=== PATIENT | female | born 1955 | race Hispanic/Latino ===

== ENCOUNTER 2017-07-20 07:15 | Day surgery (SDC) | payer OTHER ==
[2017-07-20 07:49] LABS: Basophils % (Auto) 0.6 % (0.0-1.8); Eosinophils # (Auto) 0.4 K/mm3 (0.0-0.4); Eosinophils % (Auto) 7.6 % (0.0-4.3); Hematocrit 39.7 % (30.3-42.9); Hemoglobin 13.4 gm/dl (10.1-14.3); Lymphocytes # (Auto) 1.5 K/mm3 (1.2-5.4); Lymphocytes % (Auto) 28.4 % (13.4-35.0); Mean Corpuscular HGB Conc 34 % (30-34); Mean Corpuscular Hemoglobin 32 pg (28-32); Mean Corpuscular Volume 95 fl (79-97); Monocytes # (Auto) 0.5 K/mm3 (0.0-0.8); Monocytes % (Auto) 8.5 % (0.0-7.3); Platelet Count 218 K/mm3 (140-440); Red Blood Count 4.18 M/mm3 (3.65-5.03); Red Cell Distribution Width 12.8 % (13.2-15.2)
[2017-07-20] MEDS ORDERED: ECOTRIN PO NR (08:00)
[2017-07-20] MEDS ORDERED: NACL 0.9% 500 ML 500 ML IV SCH (08:00)
[2017-07-20 08:01] LABS: INR 0.89 (0.87-1.13)
[2017-07-20 08:03] LABS: BUN/Creatinine Ratio 21; Blood Urea Nitrogen 15 mg/dL (7-17); Calcium 9.3 mg/dL (8.4-10.2); Hemolysis Index 3
[2017-07-20] MEDS ORDERED: HEPARIN/NS 5000 UNIT/500ML(CATH LAB) 1,000 ML IR ONE (08:25)
[2017-07-20] MEDS ORDERED: CALAN ONE (08:25)
[2017-07-20] MEDS ORDERED: HEPARIN 10,000 UNITS/10 ML ONE (08:25)
[2017-07-20] MEDS ORDERED: XYLOCAINE 2% INFILTRATI ONE (08:26)
[2017-07-20] MEDS ORDERED: SUBLIMAZE ONE (08:26)
[2017-07-20] MEDS ORDERED: VERSED ONE (08:26)
[2017-07-20] MEDS ORDERED: NITROGLYCERIN SYRINGE 3 ML ONE (08:26)
--- NOTE | 2017-07-20 10:09 | Cardiac Catherization Report ---
REFERRING PHYSICIAN: Edgar Garcia MD. INDICATION FOR PROCEDURE: The patient is a very pleasant 61-year-old female with history of conjunctive pericarditis, status post pericardiectomy, abnormal stress test, who presents here for left heart catheterization. Risks, benefits and alternatives explained at length prior to obtaining informed consent. PROCEDURE IN DETAIL: The patient was brought to the catheterization lab in postoperative state, prepped and draped in sterile fashion. Zhang's test in right hand was normal. A 2 mL of 2% lidocaine used to anesthetize the right wrist. A standard 6-[place]ian hydrophilic sheath used to cannulate the right radial artery via modified Seldinger technique. All exchanges performed to exchange a J-tipped guidewire. JL3.5 catheter used to engage left main. No dampening or ventricularization. Cineangiography performed in all projections. JR4 catheter used to cross the aortic valve under fluoroscopic guidance. Left ventriculography performed in 30 [place] and 30 [place] projections via hand injections, catheter flushed. Manual pullback performed with continuous pressure monitoring. Catheter used to engage the right coronary. No dampening or ventricularization. Cineangiography performed in all projections. This patient had chest pain on the table, unclear etiology. Normal coronaries. A root aortogram was then performed with a pigtail catheter in the [place] projection. Next, catheter removed from the body of wire of the wire, sheath removed. Manual pressure used to achieve hemostasis. I directly supervised the administration of moderate sedation with fentanyl and versed from 8:57am to 9: 12 am. DATA: Aortic pressure is 110/60, LV pressure is 110, LVEDP of 18 mmHg. Left ventriculography revealed normal systolic performance with estimated ejection fraction of 55-60%. No evidence of aortic stenosis. CORONARY ANATOMY: This is a right dominant system. Right coronary is a moderate sized vessel, courses AV groove, distally bifurcates in the posterior descending and posterolateral branches. No discrete stenosis identified. Left main is a short vessel, no significant disease, bifurcates in left anterior descending and left circumflex. Left circumflex a moderate sized vessel, courses AV groove, distally bifurcates into an OM trunk and a diminutive to AV groove circ. No significant disease. LAD is a large vessel, courses anterior intra-ventricular groove, wraps around the apex, tortuous, but no significant disease. Root aortography reveals normal contour, normal grade vessel anatomy. No dissection, penetrating aortic ulcer, or aortic insufficiency. CONCLUSIONS: 1. No angiographic evidence of significant epicardial coronary disease in this right dominant system. 2. Normal root aortography without evidence of dissection, penetrating ulcer or aortic insufficiency. 3. Normal left ventricular systolic performance with estimated ejection fraction of 55%-60%. 4. No evidence of aortic stenosis. 5. Normal LVEDP. At this point, recommend continued medical therapy, risk factor modification. Results of procedure explained to the patient and family. All questions and concerns were addressed. Standard radial care. The patient will be discharged home in stable condition in 2-3 hours. JOB# [id number] MILDRED/CHINEDU BUCHANAN
--- NOTE | 2017-07-20 11:05 | Short Stay Summary ---
Short Stay Documentation Date of service: 07/20/17 - History H&P: obtained from office - Allergies and Medications Current Medications: Allergies propoxyphene [From Darvon] Allergy (Severe, Verified 07/20/17 07:55) Anaphylaxis Home Medications Medication Instructions Recorded Confirmed Last Taken Type Aspirin EC [Ecotrin] 325 mg PO QDAY 07/20/17 07/20/17 07/19/17 History Ergocalciferol [Vitamin D2] 1 cap PO QWEEK 07/20/17 07/20/17 07/16/17 History Thyroid,Pork [[place] Thyroid] 60 mg PO QDAY 07/20/17 07/20/17 07/20/17 06:00 History Active Medications Sodium Chloride (Nacl 0.9% 500 Ml) 500 mls @ 50 mls/hr IV DIRECT NANCY Stop: 07/20/17 17:59 Last Admin: 07/20/17 07:47 Dose: 50 mls/hr - Brief post op/procedure progress note Date of procedure: 07/20/17 Pre-op diagnosis: abnormal stress test Post-op diagnosis: same Procedure: C - see dictated cath report Anesthesia: local Estimated blood loss: none Condition: stable - Disposition Condition at discharge: Stable Disposition: DC-01 TO HOME OR SELFCARE - Discharge Diagnoses (1) Abnormal stress test Status: Chronic (2) History of pericardiectomy Status: Chronic Short Stay Discharge Plan Activity: advance as tolerated Diet: regular Wound: open to air, keep clean and dry Follow up with: FÉLIX RAMOS NP [Primary Care Provider] - 7 Days DENIS WYATT MD [Staff Physician] - 7 Days Forms: CardCath PCI D/C Instructions, Post Sedation D/C Instructions
[2017-07-20 13:28] VITALS: BP 106/56
== END 2017-07-20 13:35 | disposition home or self-care (01) ==
LOC: CATHLABREC 07:15
PROVIDERS: ATTEND Internal Medicine
DX: R93.49 Abnormal radiologic findings on diagnostic imaging of other urinary organs (principal); Z98.890 Other specified postprocedural states; Z88.6 Allergy status to analgesic agent; Z79.01 Long term (current) use of anticoagulants
CPT/HCPCS: 36415; 80048; 85025; 85610; 85730; 93005; 93010; 93458; 99156; 99157; C1894; J1644; J2250; J3010; J7040; Q9967